=== PATIENT | male | born 1930 | race Hispanic/Latino ===

== ENCOUNTER 2019-08-04 04:12 | Emergency (ER) | payer MEDICARE ==
[~2019-08-04 04:12] MED LIST: TAMS-1 PO
[2019-08-04 04:36] LABS: APPEARANCE,URINE SL CLOUDY (CLEAR); BILIRUBIN,URINE NEGATIVE (NEGATIVE); COLOR,URINE BROWN (YELLOW); GLUCOSE, URINE (UA) NEGATIVE (NEGATIVE); KETONES,URINE NEGATIVE (NEGATIVE); LEUKOCYTE ESTERASE ,URINE MODERATE (NEGATIVE); NITRATE,URINE POSITIVE (NEGATIVE); OCCULT BLOOD,URINE LARGE (NEGATIVE); PH,URINE 5.5 (5.0-8.0); PROTEIN,URINE 100 mg/dL (NEGATIVE); UROBILINOGEN,URINE 0.2 mg/dL (0.2-1.0)
[2019-08-04 04:43] LABS: RBC,URINE TNTC /HPF (0-1)
[2019-08-04 04:44] LABS: BACTERIA,URINE Moderate /HPF (None Seen)
[2019-08-04] MEDS ORDERED: LIDOCAINE HCL 2% JELLY 5 ML ONE (05:30)
[2019-08-04] MEDS ORDERED: MORPHINE SULFATE 4 MG/1ML SYG ONE (05:45)
[2019-08-04] MEDS ORDERED: ONDANSETRON HCL 4 MG/2 ML VIAL ONE (05:45)
[2019-08-04 05:51] LABS: BASOPHILS % (AUTO) 0.6 % (0.0-5.0); EOSINOPHILS % (AUTO) 1.9 % (0.0-8.0); HEMATOCRIT 35.9 % (42-54); LYMPHOCYTES % (AUTO) 18.2 % (21.0-51.0); MEAN CORPUSCULAR HEMOGLOBIN 28.7 pg (27.0-33.0); MEAN CORPUSCULAR HGB CONC 33.7 g/dL (32.0-36.0); MEAN CORPUSCULAR VOLUME 85.1 fL (79-99); MONOCYTES % (AUTO) 9.2 % (3.0-13.0); NEUTROPHILS % (AUTO) 69.8 % (40.0-77.0); PLATELET COUNT (AUTO) 220 K/uL (130-400); RED BLOOD CELL COUNT(AUTO) 4.22 MIL/uL (4.50-6.20); RED CELL DISTRIBUTION WIDTH 13.2 % (11.0-15.5); WHITE BLOOD COUNT (AUTO) 6.3 K/uL (4.8-10.8)
[2019-08-04 05:57] LABS: POTASSIUM 3.9 mmol/L (3.5-5.1)
[2019-08-04 06:01] LABS: INR 1.11 (0.85-1.15); PARTIAL THROMBOPLASTIN TIME 31.3 SEC (26.3-35.5); PROTHROMBIN TIME 11.6 SEC (9.6-11.6)
[2019-08-04 06:02] LABS: BILIRUBIN,TOTAL 0.6 mg/dL (0.2-1.0); TOTAL PROTEIN, SERUM 6.3 g/dL (6.0-8.3)
== END 2019-08-04 08:35 | disposition home or self-care (01) ==
LOC: EDH 04:12
DX: R31.9 Hematuria, unspecified (principal)
CPT/HCPCS: 36415; 51702; 80053; 81001; 85025; 85610; 85730; 96374; 96375; 99284; J2270; J2405